=== PATIENT | female | born 1940 | race Caucasian/White ===

== ENCOUNTER 2021-12-09 15:07 | Emergency (ER) | payer OTHER, SELFPAY ==
[~2021-12-09] VITALS: Ht 172.7 cm; Wt 81.6 kg
--- NOTE | 2021-12-09 15:18 | NUR ---
Patient to ER bed 01 to gown for evaluation. Side rails up.
[2021-12-09 15:19] VITALS: BP_SYST 240
[2021-12-09] MEDS ORDERED: NACL 0.9% 1,000 ML IV ONE (15:45)
[2021-12-09] MEDS ORDERED: ONDANSETRON HCL 4 MG/2 ML VIAL IVP ONE (15:45)
[2021-12-09 16:07] LABS: BASOPHILS % (AUTO) 0.5 % (0.0-2.0); EOSINOPHILS # (AUTO) 0.1 K/uL (0.0-0.4); EOSINOPHILS % (AUTO) 1.6 % (0.0-4.0); HEMATOCRIT 42.7 % (36-48); HEMOGLOBIN 14.4 g/dL (12.0-16.0); LYMPHOCYTES # (AUTO) 0.8 K/uL (1.0-5.5); LYMPHOCYTES % (AUTO) 13.3 % (20.5-51.5); MEAN CORPUSCULAR HEMOGLOBIN 31 pg (27-31); MEAN CORPUSCULAR HGB CONC 34 % (32-36); MEAN CORPUSCULAR VOLUME 91 fL (79.0-98.0); MONOCYTES # (AUTO) 0.3 K/uL (0.0-1.0); MONOCYTES % (AUTO) 5.4 % (1.7-9.3); NEUTROPHILS # (AUTO) 4.8 K/uL (1.8-7.7); NEUTROPHILS % (AUTO) 79.2 % (40.0-70.0); PLATELET COUNT (AUTO) 111 K/uL (130-430); RED BLOOD CELL COUNT(AUTO) 4.68 MIL/uL (4.2-6.2); RED CELL DISTRIBUTION WIDTH 13.4 % (9.0-15.0)
[2021-12-09 16:21] LABS: PROTHROMBIN TIME 10.5 SECS (9.5-12.5)
[2021-12-09] MEDS ORDERED: hydrALAZINE HCL 20 MG/ML VIAL IVP ONE (16:30)
[2021-12-09 16:43] LABS: ALANINE AMINOTRANSFERASE 15 U/L (12-78); ALBUMIN 3.8 g/dL (3.4-4.8); ASPARTATE AMINOTRANSFERASE 18 U/L (10-37); CALCIUM 9.2 mg/dL (8.4-11.0); CREATININE 1.01 mg/dL (0.55-1.30); GLUCOSE 159 mg/dL (70-99); LIPASE 117 U/L (73-393); TOTAL BILIRUBIN 1.4 mg/dL (0.0-1.0); UREA NITROGEN, BLOOD 14 mg/dL (8-21)
--- NOTE | 2021-12-09 16:57 | NUR ---
PER PT DOC OFFICE, DR. HERNANDEZ WILL ADMIT IF PT IS TO BE ADMITTED. SPOKE TO ASHLY
--- NOTE | 2021-12-09 17:00 | NUR ---
Dr Venegas at bedside to evaluate.
[2021-12-09 17:01] LABS: ANION GAP 9 (5-15); CHLORIDE 101 mmol/L (98-107); POTASSIUM 3.6 mmol/L (3.5-5.1); SODIUM SERUM 139 mmol/L (136-145)
[2021-12-09] MEDS ORDERED: levETIRAcetam 500 MG in NS 100 ML IV ONE (17:30)
[2021-12-09] MEDS ORDERED: niCARdipine 25 MG in D5W 240 ML IV PRN ×2 (17:30→18:00)
[2021-12-09] MEDS ORDERED: niCARdipine 2.5 MG/ML, 10 ML VIAL (CARDENE) IV ONE (17:51)
--- NOTE | 2021-12-09 17:52 | NUR ---
TRANSFER INFO [facility] DR. ARAIZA [phone] [id number] 30-40 MIN [facility] SPOKE TO DOT
--- NOTE | 2021-12-09 18:00 | NUR ---
Patient continuously on monitor with stable vital signs. All ordered medications verified and given.
[2021-12-09] MEDS ORDERED: AMLO5TAB4 PO (18:01)
[2021-12-09] MEDS ORDERED: LEVO25TA7 PO (18:02)
[2021-12-09] MEDS ORDERED: DONE10TA44 PO (18:02)
--- NOTE | 2021-12-09 18:03 | NUR ---
Medication reconciliation completed with information provided by family. Any prior medication reconciliation on file was reviewed and corrected.
--- NOTE | 2021-12-09 18:50 | NUR ---
Called [facility] and gave report to Coty Castellanos.
[2021-12-09 19:37] VITALS: BP_SYST 124
== END 2021-12-09 18:50 | disposition short-term general hospital (02) ==
LOC: SED 15:07
DX: I61.9 Nontraumatic intracerebral hemorrhage, unspecified (principal); I10 Essential (primary) hypertension; F03.90 Unspecified dementia, unspecified severity, without behavioral disturbance, psychotic disturbance, mood disturbance, and anxiety; Z20.822 Contact with and (suspected) exposure to COVID-19; Z79.899 Other long term (current) drug therapy
CPT/HCPCS: 36415; 70450; 71045; 76376; 80053; 83690; 84484; 85025; 85610; 85730; 87426; 93005; 96361; 96365; 96375; 99291; J0360; J1953; J7030

== ENCOUNTER → 2022-04-02 | Emergency (ER) | payer OTHER ==
[~2022-04-02] VITALS: Ht 177.8 cm; Wt 90.7 kg
[~2022-04-02] MED LIST: AMLO5TAB4 PO; DONE10TA44 PO; LEVO25TA7 PO
[2022-04-03 00:21] VITALS: BP_SYST 151
--- NOTE | 2022-04-03 00:28 | NUR ---
PT BIBA from home after a mechanical fall after moving from chair to walker. PT reports no head trauma. History of bilateral knee replacement and dementia. Pt is poor historian.
--- NOTE | 2022-04-03 02:41 | NUR ---
Patient to ER bed 04 to gown for evaluation. Side rails up. Report given to DEDE RAYMUNDO
[2022-04-03 04:43] LABS: BASOPHILS % (AUTO) 0.5 % (0.0-2.0); EOSINOPHILS # (AUTO) 0.1 K/uL (0.0-0.4); EOSINOPHILS % (AUTO) 2.5 % (0.0-4.0); HEMATOCRIT 41.1 % (36-48); LYMPHOCYTES # (AUTO) 1.1 K/uL (1.0-5.5); LYMPHOCYTES % (AUTO) 23.5 % (20.5-51.5); MEAN CORPUSCULAR HEMOGLOBIN 32 pg (27-31); MEAN CORPUSCULAR HGB CONC 34 % (32-36); MEAN CORPUSCULAR VOLUME 93 fL (79.0-98.0); MONOCYTES # (AUTO) 0.4 K/uL (0.0-1.0); MONOCYTES % (AUTO) 9.2 % (1.7-9.3); NEUTROPHILS # (AUTO) 2.9 K/uL (1.8-7.7); NEUTROPHILS % (AUTO) 64.3 % (40.0-70.0); PLATELET COUNT (AUTO) 109 K/uL (130-430); RED CELL DISTRIBUTION WIDTH 13.5 % (9.0-15.0); WHITE BLOOD COUNT (AUTO) 4.6 K/uL (4.8-10.8)
[2022-04-03 05:15] LABS: ANION GAP 9 (5-15); CALCIUM 9.4 mg/dL (8.4-11.0); CHLORIDE 106 mmol/L (98-107); CREATININE 0.89 mg/dL (0.55-1.30); GLUCOSE 96 mg/dL (70-99); POTASSIUM 3.4 mmol/L (3.5-5.1); SODIUM SERUM 144 mmol/L (136-145); UREA NITROGEN, BLOOD 16 mg/dL (8-21)
[2022-04-03 05:27] LABS: ALANINE AMINOTRANSFERASE 13 U/L (12-78); ALBUMIN 3.5 g/dL (3.4-4.8); ASPARTATE AMINOTRANSFERASE 17 U/L (10-37); TOTAL BILIRUBIN 1.1 mg/dL (0.0-1.0)
[2022-04-03 06:14] VITALS: BP_SYST 114
== END | disposition home or self-care (01) ==
LOC: SED 23:35
DX: M25.511 Pain in right shoulder (principal)
CPT/HCPCS: 36415; 70450-TC; 73030; 76376; 80053; 84484; 85025; 93005; 99285